=== PATIENT | female | born 1955 | race Caucasian/White ===

== ENCOUNTER → 2018-01-12 12:00 | Outpatient (CLI) | payer OTHER, SELFPAY ==
[2018-01-12 13:20] LABS: Free T4, Direct Thyroxine 1.46 ng/dL (0.78-2.19)
[2018-01-12 13:34] LABS: Thyroid Stimulating Hormone 1.35 uIU/mL (0.47-4.68)
== END ==
PROVIDERS: Family Provider Family Medicine; Visit Provider Naturopath
DX: E03.9 Hypothyroidism, unspecified (principal)
CPT/HCPCS: 36415; 84439; 84443; 84481